=== PATIENT | male | born 1975 | race Caucasian/White ===

== ENCOUNTER 2025-02-04 04:46 | Emergency (ER) | payer MEDICAID, SELFPAY ==
[2025-02-04 04:47] VITALS: BP 141/70; PULSE 77; RESP 17; TEMP 36.7; O2SAT 99; BMI 24.4
--- NOTE | 2025-02-04 05:03 | ED.WOUNDLAC ---
HPI - Wound/Laceration General Chief Complaint: Wound/Laceration Stated Complaint: finger lac Time Seen by Provider: 02/04/25 04:56 Source: patient Mode of arrival: ambulatory Limitations: no limitations History of Present Illness ED Provider: Dr. Marj Nesbitt HPI narrative: Patient comes to the emergency room complaining of a laceration to the palmar aspect of the left thumb. Patient states that he was about to use his new knife to cut some deer meat, patient's slipped, states that he barely touch the knife and noted that he had actually lacerated his finger. Patient states that he does not know when was the last time he had Tdap but he is willing to get a booster. Related Data Allergies Allergy/AdvReac Type Severity Reaction Status Date / Time No Known Allergies Allergy Verified 02/04/25 04:53 Review of Systems Review of Systems: Constitutional : No Weight loss, No Fever, No Chills, No Night Sweats, No Fatigue, No Malaise ENT/Mouth : No Hearing loss, No Ear Pain, No Nasal Congestion, No Sinus Pain, No Hoarseness, No sore throat, No Rhinorrhea, No Swallowing Difficulty Eyes: No Eye Pain, No Swelling, No Redness, No Foreign Body, No Discharge, No Vision Changes Cardiovascular : No Chest Pain, No SOB, No Dyspnea on Exertion, No Orthopnea, No Edema, No Palpitations Respiratory : No Cough, No Sputum, No Wheezing, No Smoke Exposure, No Dyspnea Gastrointestinal : No Nausea, No Vomiting, No Diarrhea, No Constipation, No abdominal Pain, No Hematochezia, No Melena Genitourinary : no irregular bleeding, No Dysuria, No Urinary Frequency, No Hematuria, No Urinary Incontinence, No Urgency, No Flank Pain, No Urinary Flow Changes, No Hesitancy Musculoskeletal : No joint pain, No Myalgias, No Joint Swelling Skin : Complaining of a laceration to the palmar aspect of the left hand/thumb Neuro : No Weakness, No Numbness, No Paresthesias, No Loss of Consciousness, No Dizziness, No Headache Psych : No Anxiety/Panic, No Depression, No SI/HI/AH/VH, No Social Issues, Heme/Lymph: No Bruising, No Bleeding,No Lymphadenopathy Endocrine : No Polyuria, No Polydipsia, No Temperature Intolerance PMFSH Social History Social History Do you have a plan to hurt others: No Plan Physical Exam Exam: Exam: Appearance: Alert. Oriented X3. No acute distress. Eyes: Pupils equal, round and reactive to light. ENT: Pharynx normal. Neck: Normal inspection. Neck supple. No lymph nodes noted. No crepitus CVS: Normal heart rate and rhythm. Pulses normal. Normal S1 and S2 Respiratory: No respiratory distress. Breath sounds normal. No Wheezing. No rales Abdomen: Soft and nontender. No rigidity. No distention. Skin: Skin warm and dry. Normal skin color. Normal skin turgor. Laceration to the palmar aspect of the left thumb, triangular shape, flap, deep, bleeding, patient able to flex and extend the thumb and oppose the thumb. Finger exam under a bloodless field, no obvious tendon injury. Extremities: No lower extremity edema. No Lacerations. No Rash Neuro: Oriented X 3. No motor deficit. No sensory deficit. Moving all extremities. No slurred speech. CN 2 through 12 grossly intact Psych: calm, cooperative, normal affect Vital Signs: Vital Signs: Last Vital Signs Temp 98.1 F 02/04/25 04:47 Pulse 77 02/04/25 04:47 Resp 17 02/04/25 04:47 BP 141/70 H 02/04/25 04:47 Pulse Ox 99 02/04/25 04:47 O2 Del Method Room Air 02/04/25 04:47 BMI result Body Mass Index 24.4 Medical Decision Making Medical Decision Making MDM Narrative: Patient's finger was infiltrated with 4 mL of 1% lidocaine without epinephrine. Five stitches were applied, 4-0, patient tolerated well the procedure. Tdap was given Procedures Laceration Laceration 1: Site: hand (Thumb, palmar aspect) Side (If applicable): left Size (cm): 3 Description: flap and irregular Depth: simple, single layer Local Anesthetic: lidocaine 1% Amount of anesthesia used (mL): 4 Pre-repair: wound explored Skin layer closed with: nylon Size (cm): 4-0 Number of sutures: 5 Technique: simple, interrupted Discharge Plan Discharge Clinical Impression: Laceration Patient Disposition: Home, Self-Care Instructions: Finger Laceration (ED), Care For Your Stitches (ED) Additional Instructions: Your stitches need to be removed in 7-10 days. If you see any signs of infection such as pus drainage, fever, chills, please return to the emergency room Please follow-up with your primary care physician tomorrow. If you have any worsening or new symptoms, please return to the emergency room or call 911
[2025-02-04] MEDS: Lidocaine HCl 1 % 20 ML VIAL 10 ML INFILTRATI (05:44)
[2025-02-04] MEDS: Diphth,Pertus(ACell),Tet Adult 0.5 ML SYRINGE IM (05:45)
[2025-02-04 05:51] VITALS: BP 141/70; PULSE 77; RESP 17; TEMP 36.7; O2SAT 99
== END 2025-02-04 05:52 | disposition home or self-care (01) ==
PROVIDERS: Emergency Provider Emergency Medicine; PCP Internal Medicine
DX: S61.012A Laceration without foreign body of left thumb without damage to nail, initial encounter (principal); M79.642 Pain in left hand; X58.XXXA Exposure to other specified factors, initial encounter; W26.0XXA Contact with knife, initial encounter; Y93.9 Activity, unspecified; Y92.9 Unspecified place or not applicable; Y99.8 Other external cause status; Z23 Encounter for immunization
CPT/HCPCS: 12002; 90471; 90715; 99282; 99284; J2003